=== PATIENT | female | born 1950 ===

== ENCOUNTER → 2017-03-06 | Outpatient (CLI) | payer OTHER ==
[~2017-03-06] MED LIST: LISINOPRIL2.5 MG PO; METFORMIN HCL500 MG PO; XANAX XR0.5 MG PO; ZOLOFT50 MG PO
== END | disposition home or self-care (01) ==
LOC: EKG 11:22
DX: R22.2 Localized swelling, mass and lump, trunk (principal); Z01.810 Encounter for preprocedural cardiovascular examination

== ENCOUNTER → 2017-03-06 | Outpatient (CLI) | payer OTHER | END | disposition home or self-care (01) | LOC: LAB 11:02 | DX: R22.2 Localized swelling, mass and lump, trunk (principal); Z01.812 Encounter for preprocedural laboratory examination ==

== ENCOUNTER 2017-03-11 05:46 | Day surgery (SDC) | payer OTHER | END 2017-03-11 10:10 | disposition home or self-care (01) | LOC: CIR.AMB 05:46 | DX: D17.1 Benign lipomatous neoplasm of skin and subcutaneous tissue of trunk (principal) ==